=== PATIENT | female | born 1980 | race Caucasian/White ===

== ENCOUNTER 2021-05-05 10:39 | Outpatient (CLI) | payer BC ==
--- NOTE | 2021-05-05 15:47 | XRAY Report ---
PROCEDURE: Chest 2 View X-Ray INDICATIONS: SHORTNESS OF BREATH/COUGH TECHNIQUE: 2 view(s) of the chest. COMPARISON: None. FINDINGS: Surgical changes and devices: None. Lungs and pleura: No pleural effusions or pneumothorax. There is mild patchy bilateral pulmonary air space opacity. Mediastinum: Mediastinal contours are normal. Heart size is normal. Bones and chest wall: No suspicious bony abnormalities. Soft tissues appear unremarkable. IMPRESSION: Mild atypical pneumonia. Reviewed by: Corrie Méndez MD on 05/05/2021 3:45 PM PDT Approved by: Corrie Méndez MD on 05/05/2021 3:45 PM PDT Station ID: [id number]
== END 2021-05-05 10:40 | disposition home or self-care (01) ==
LOC: DI 10:39
PROVIDERS: ATTEND Physician Assistant
DX: J18.9 Pneumonia, unspecified organism (principal); R06.02 Shortness of breath; R05.1 Acute cough; Z20.822 Contact with and (suspected) exposure to COVID-19

== ENCOUNTER 2021-06-21 15:17 | Outpatient (CLI) | payer BC ==
--- NOTE | 2021-06-21 16:50 | XRAY Report ---
PROCEDURE: Chest 2 View X-Ray INDICATIONS: SHORTNESS OF BREATH TECHNIQUE: 2 view(s) of the chest. COMPARISON: None. FINDINGS: Surgical changes and devices: None. Lungs and pleura: No pleural effusions or pneumothorax. Lungs are clear. Mediastinum: Mediastinal contours are normal. Heart size is normal. Bones and chest wall: No suspicious bony abnormalities. Soft tissues appear unremarkable. IMPRESSION: Normal chest. Reviewed by: Penny Manning MD on 06/21/2021 4:49 PM PST Approved by: Penny Manning MD on 06/21/2021 4:49 PM PST Station ID: [id number]
== END 2021-06-21 23:59 | disposition home or self-care (01) ==
LOC: DI.N 15:17
PROVIDERS: ATTEND Nurse Practitioner
DX: R06.02 Shortness of breath (principal)